=== PATIENT | female | born 1960 | race African-American/Black ===

== ENCOUNTER 2018-06-01 14:54 | Emergency (ER) | payer MEDICAID, OTHER ==
[~2018-06-01] VITALS: Ht 162.6 cm; Wt 100.0 kg
[2018-06-01] MEDS ORDERED: ALBU05 IH (15:03)
[2018-06-01] MEDS ORDERED: HYDR12.529 PO (15:03)
[2018-06-01] MEDS ORDERED: LORA-250 PO (15:03)
[2018-06-01] MEDS ORDERED: LISI-186 PO (15:03)
[2018-06-01] MEDS ORDERED: MORPHINE SULFATE 4 MG/ML CPJ (NOT FOR IM USE) IV ONE (18:15)
[2018-06-01] MEDS ORDERED: ASPIRIN 81MG TABLET PO ONE (18:15)
[2018-06-01] MEDS ORDERED: NITROGLYCERIN OINT 1GM/INCH UDPKT TD ONE (18:15)
[2018-06-01 19:48] LABS: BASOPHILS % 0.6 % (0.0-2.0); EOSINOPHILS % 2.9 % (0.0-5.0); HEMATOCRIT. 41.7 % (36.0-48.0); HEMOGLOBIN. 13.5 g/dL (12.0-16.0); LYMPHOCYTES % 30.5 % (20.0-50.0); MEAN CORPUSCULAR HEMOGLOBIN 26.2 pg (28.0-32.0); MEAN CORPUSCULAR VOLUME 80.8 fL (81.0-99.0); MEAN PLATELET VOLUME 9.9 fl (7.4-10.4); MONOCYTES % 5.7 % (2.0-8.0); NEUTROPHILS % 60.3 % (40.0-76.0); PLATELET 240 x1000/uL (130-400); RED BLOOD CELL COUNT 5.16 mill/uL (4.2-5.4); RED CELL DISTRIBUTION WIDTH 16.1 % (11.6-14.6)
[2018-06-01 19:52] LABS: INR 0.9; PROTHROMBIN TIME 9.5 sec (9.1-11.1)
[2018-06-01 19:54] LABS: CHLORIDE 107 mEq/L (98-107)
[2018-06-01 20:00] VITALS: BP 0/0
== END 2018-06-01 20:00 | disposition left against medical advice (07) ==
LOC: ER 14:54
DX: R07.89 Other chest pain (principal); R06.02 Shortness of breath; I11.0 Hypertensive heart disease with heart failure; I50.9 Heart failure, unspecified; J44.9 Chronic obstructive pulmonary disease, unspecified; E11.9 Type 2 diabetes mellitus without complications; Z79.899 Other long term (current) drug therapy
CPT/HCPCS: 36415; 71045; 80053; 83880; 84484; 85025; 85610; 93005; 96374; 99285; J2270

== ENCOUNTER 2020-01-05 07:48 | Inpatient (IN) | payer MEDICARE, MEDICAID, OTHER ==
[~2020-01-05] VITALS: Ht 160 cm; Wt 112.0 kg
[~2020-01-05 07:48] MED LIST: ALBU05 IH; HYDR12.529 PO; LISI-186 PO; LORA-250 PO
[2020-01-05 08:40] LABS: BASOPHILS % 0.9 % (0.0-2.0); EOSINOPHILS % 1.6 % (0.0-5.0); HEMATOCRIT. 41.6 % (36.0-48.0); HEMOGLOBIN. 13.7 g/dL (12.0-16.0); LYMPHOCYTES % 19.4 % (20.0-50.0); MEAN CORPUSCULAR HEMOGLOBIN 26.2 pg (28.0-32.0); MEAN CORPUSCULAR VOLUME 79.5 fL (81.0-99.0); MEAN PLATELET VOLUME 8.5 fl (7.4-10.4); MONOCYTES % 6.7 % (2.0-8.0); NEUTROPHILS % 71.4 % (40.0-76.0); PLATELET 290 x1000/uL (130-400); RED BLOOD CELL COUNT 5.23 mill/uL (4.2-5.4); RED CELL DISTRIBUTION WIDTH 15.1 % (11.6-14.6)
[2020-01-05 08:46] LABS: CHLORIDE 108 mEq/L (98-107)
[2020-01-05] MEDS ORDERED: IPRATROPIUM BROMIDE (0.02%) 0.5MG/2.5ML NEB HHN STA (10:51)
[2020-01-05] MEDS ORDERED: ALBUTEROL (0.083%) 2.5MG/3ML NEB HHN STA (10:51)
[2020-01-05] MEDS ORDERED: METHYLPREDNISOLONE SOD SUCC 125 MG/2 ML VIAL IV STA (10:51)
[2020-01-05] MEDS ORDERED: FUROSEMIDE 40MG/4ML VIAL IVP ONE (11:45)
[2020-01-05] MEDS ORDERED: ENALAPRIL 2.5MG/2ML VIAL 2ML IV ONE (11:45)
[2020-01-05] MEDS ORDERED: CEFTRIAXONE 1 G PREMIX 50 ML IV SCH (13:00)
[2020-01-05] MEDS ORDERED: ACETAMINOPHEN 325MG TABLET PO PRN (13:00)
[2020-01-05] MEDS ORDERED: ONDANSETRON HCL 4MG/2ML INJ IV PRN (13:00)
[2020-01-05 14:51] VITALS: BP 192/96
[2020-01-05] MEDS: FUROSEMIDE 40MG/4ML VIAL IV SCH (15:28)
[2020-01-05] MEDS: AZITHROMYCIN 500 MG TABLET PO SCH (15:28)
[2020-01-05 15:38] LABS: CLARITY URINE CLEAR (CLEAR); COLOR URINE YELLOW (YELLOW); KETONES URINE NEGATIVE (NEGATIVE); LEUKOCYTE ESTERASE URINE TRACE (NEGATIVE); NITRITE URINE NEGATIVE (NEGATIVE); OCCULT BLOOD URINE NEGATIVE (NEGATIVE); PROTEIN URINE NEGATIVE (NEGATIVE); SPECIFIC GRAVITY URINE 1.008 (1.005-1.030); UROBILINOGEN URINE 0.2 E.U./dL (0.2-1.0)
[2020-01-05 15:46] VITALS: BP 117/91
[2020-01-05 15:59] LABS: *AMPHETAMINES SCREEN URINE NEGATIVE (NEGATIVE); *BARBITURATES SCREEN URINE NEGATIVE (NEGATIVE); *BENZODIAZEPINES SCREEN URINE NEGATIVE (NEGATIVE); *COCAINE SCREEN URINE PRESUMTIVE POSITIVE (NEGATIVE); METHADONE URINE SCREEN NEGATIVE (NEGATIVE); OPIATES URINE SCREEN NEGATIVE (NEGATIVE)
[2020-01-05 16:00] LABS: CANNABINOID URINE SCREEN NEGATIVE (NEGATIVE); PHENCYCLIDINE URINE SCREEN NEGATIVE (NEGATIVE)
[2020-01-05] MEDS: METHYLPREDNISOLONE SOD SUCC 40 MG/ML VIAL IV SCH (16:15)
[2020-01-05] MEDS: CEFTRIAXONE 1 G PREMIX 50 ML IV SCH (16:15)
[2020-01-05] MEDS: IPRATROPIUM/ALBUTEROL 0.5-3(2.5)MG/3ML NEB HHN SCH (17:30)
[2020-01-05 20:00] VITALS: BP 112/83
[2020-01-05] MEDS: ENOXAPARIN 30MG/0.3ML SYR SUBCUT SCH (20:34)
[2020-01-05] MEDS: LORAZEPAM 1MG TABLET PO PRN (20:38)
[2020-01-06] VITALS (7 sets, daily range): BP systolic 128–156; BP diastolic 52–107
[2020-01-06 06:26] LABS: BASOPHILS % 0.1 % (0.0-2.0); HEMATOCRIT. 41.1 % (36.0-48.0); HEMOGLOBIN. 13.4 g/dL (12.0-16.0); LYMPHOCYTES % 13.6 % (20.0-50.0); MEAN CORPUSCULAR HEMOGLOBIN 26.1 pg (28.0-32.0); MEAN CORPUSCULAR VOLUME 80.1 fL (81.0-99.0); MEAN PLATELET VOLUME 8.5 fl (7.4-10.4); MONOCYTES % 2.4 % (2.0-8.0); NEUTROPHILS % 83.9 % (40.0-76.0); PLATELET 293 x1000/uL (130-400); RED BLOOD CELL COUNT 5.13 mill/uL (4.2-5.4); RED CELL DISTRIBUTION WIDTH 15.2 % (11.6-14.6)
[2020-01-06] MEDS: FUROSEMIDE 40MG/4ML VIAL IV SCH (08:19)
[2020-01-06] MEDS: AZITHROMYCIN 500 MG TABLET PO SCH (08:19)
[2020-01-06] MEDS: LORAZEPAM 1MG TABLET PO PRN ×2 (08:19→19:59)
[2020-01-06] MEDS: METHYLPREDNISOLONE SOD SUCC 40 MG/ML VIAL IV SCH ×5 (08:19→23:17)
[2020-01-06] MEDS: ENOXAPARIN 30MG/0.3ML SYR SUBCUT SCH ×3 (08:19→20:02)
[2020-01-06] MEDS: IPRATROPIUM/ALBUTEROL 0.5-3(2.5)MG/3ML NEB HHN SCH ×2 (09:04→16:17)
[2020-01-06] MEDS: CEFTRIAXONE 1 G PREMIX 50 ML IV SCH (15:25)
[2020-01-06] MEDS ORDERED: LORAZEPAM 2MG/ML CPJ IV NR (18:15)
[2020-01-07 05:00] VITALS: BP 170/100
[2020-01-07 06:21] LABS: BASOPHILS % 0.1 % (0.0-2.0); HEMATOCRIT. 42.4 % (36.0-48.0); HEMOGLOBIN. 13.8 g/dL (12.0-16.0); LYMPHOCYTES % 15.5 % (20.0-50.0); MEAN CORPUSCULAR HEMOGLOBIN 26.2 pg (28.0-32.0); MEAN CORPUSCULAR VOLUME 80.6 fL (81.0-99.0); MEAN PLATELET VOLUME 8.8 fl (7.4-10.4); MONOCYTES % 3.8 % (2.0-8.0); NEUTROPHILS % 80.6 % (40.0-76.0); PLATELET 312 x1000/uL (130-400); RED BLOOD CELL COUNT 5.27 mill/uL (4.2-5.4); RED CELL DISTRIBUTION WIDTH 15.1 % (11.6-14.6)
[2020-01-07] MEDS ORDERED: CLONIDINE 0.1MG TABLET PO PRN (06:45)
[2020-01-07 08:39] VITALS: BP 169/76
[2020-01-07] MEDS: ENOXAPARIN 30MG/0.3ML SYR SUBCUT SCH ×2 (09:00→09:06)
[2020-01-07] MEDS ORDERED: AMLODIPINE 10MG TABLET PO SCH (09:00)
[2020-01-07] MEDS: METHYLPREDNISOLONE SOD SUCC 40 MG/ML VIAL IV SCH (09:05)
[2020-01-07] MEDS: AZITHROMYCIN 500 MG TABLET PO SCH (09:05)
[2020-01-07] MEDS: FUROSEMIDE 40MG/4ML VIAL IV SCH (09:05)
[2020-01-07] MEDS ORDERED: LORAZEPAM 2MG/ML CPJ IV NR (10:00)
[2020-01-07 12:17] VITALS: BP 154/82
[2020-01-07 12:21] VITALS: BP 154/85
[2020-01-07] MEDS ORDERED: HYDRALAZINE HCL 50MG TABLET PO SCH (21:00)
== END 2020-01-07 15:30 | disposition home or self-care (01) | DRG 205 ==
LOC: ER 07:48 → 5WST 11:31 → ENRESERV 12:25
PROVIDERS: ADMIT Internal Medicine; ATTEND Internal Medicine
DX: J68.0 Bronchitis and pneumonitis due to chemicals, gases, fumes and vapors (principal); J96.00 Acute respiratory failure, unspecified whether with hypoxia or hypercapnia; I50.43 Acute on chronic combined systolic (congestive) and diastolic (congestive) heart failure; J44.1 Chronic obstructive pulmonary disease with (acute) exacerbation; E44.1 Mild protein-calorie malnutrition; Z68.41 Body mass index [BMI] 40.0-44.9, adult; I11.0 Hypertensive heart disease with heart failure; I50.9 Heart failure, unspecified; E87.5 Hyperkalemia; E66.9 Obesity, unspecified; F14.90 Cocaine use, unspecified, uncomplicated; F17.210 Nicotine dependence, cigarettes, uncomplicated; E11.9 Type 2 diabetes mellitus without complications; Z71.89 Other specified counseling; Z71.6 Tobacco abuse counseling; Z71.51 Drug abuse counseling and surveillance of drug abuser; Z91.14 Patient's other noncompliance with medication regimen
CPT/HCPCS: 36415; 71045; 80048; 80053; 80305; 81003; 82962; 83880; 84484; 85025; 93005; 93306; 94640; 99285; J0696; J1650; J1940; J2060; J2920; J2930; J3490

== ENCOUNTER 2020-07-07 21:37 | Inpatient (IN) | payer MEDICARE, MEDICAID ==
[~2020-07-07] VITALS: Ht 165.1 cm; Wt 99.8 kg
[2020-07-08] MEDS ORDERED: CLONIDINE 0.1MG TABLET PO ONE (02:30)
[2020-07-08 03:21] LABS: BASOPHILS % 0.4 % (0.0-2.0); EOSINOPHILS % 3.2 % (0.0-5.0); HEMATOCRIT. 36.9 % (36.0-48.0); HEMOGLOBIN. 11.8 g/dL (12.0-16.0); LYMPHOCYTES % 35.9 % (20.0-50.0); MEAN CORPUSCULAR HEMOGLOBIN 25.6 pg (28.0-32.0); MEAN PLATELET VOLUME 8.7 fl (7.4-10.4); MONOCYTES % 6.9 % (2.0-8.0); NEUTROPHILS % 53.6 % (40.0-76.0); PLATELET 246 x1000/uL (130-400)
[2020-07-08 03:28] LABS: CHLORIDE 113 mEq/L (98-107)
[2020-07-08] MEDS ORDERED: ACETAMINOPHEN 325MG TABLET PO PRN (07:45)
[2020-07-08] MEDS ORDERED: ONDANSETRON HCL 4MG/2ML INJ IV PRN (07:45)
[2020-07-08] MEDS ORDERED: ENOXAPARIN 40MG/0.4ML SYR SUBCUT SCH (07:45)
[2020-07-08] MEDS ORDERED: KETOROLAC 15MG/ML VIAL IV PRN (07:45)
[2020-07-08] MEDS ORDERED: GUAIFENESIN 200MG/10ML SUGAR FREE UDC PO PRN (07:45)
[2020-07-08] MEDS ORDERED: CLONIDINE 0.1MG TABLET PO PRN (07:45)
[2020-07-08] MEDS ORDERED: AMLODIPINE 10MG TABLET PO SCH (07:45)
[2020-07-08] MEDS ORDERED: IPRATROPIUM/ALBUTEROL 0.5-3(2.5)MG/3ML NEB NEB PRN (07:45)
[2020-07-08] MEDS ORDERED: LISINOPRIL 20MG TABLET PO SCH (07:51)
[2020-07-08 08:25] VITALS: BP 135/58
[2020-07-08] MEDS ORDERED: FUROSEMIDE 40MG/4ML VIAL IV SCH (09:00)
[2020-07-08] MEDS ORDERED: MAGNESIUM/ALUMINUM HYDROXIDE/SIMETHICONE 30ML UDC PO PRN (09:00)
[2020-07-08] MEDS ORDERED: ENOXAPARIN 30MG/0.3ML SYR SUBCUT SCH (09:00)
[2020-07-08] MEDS ORDERED: DOCUSATE SODIUM 100MG CAPSULE PO PRN (09:00)
[2020-07-08] MEDS ORDERED: CLON0.1T MT (11:45)
[2020-07-08 11:48] VITALS: BP 135/58
[2020-07-08 11:56] VITALS: BP 114/84
[2020-07-08 12:00] VITALS: BP 114/84
== END 2020-07-08 12:20 | disposition home or self-care (01) | DRG 682 ==
LOC: ER 21:37 → 5WST 07-08 05:52 → ENRESERV 07-08 07:25
PROVIDERS: ADMIT Hospitalist; ATTEND Hospitalist
DX: N17.9 Acute kidney failure, unspecified (principal); I50.33 Acute on chronic diastolic (congestive) heart failure; I16.0 Hypertensive urgency; I11.0 Hypertensive heart disease with heart failure; J45.909 Unspecified asthma, uncomplicated; J44.9 Chronic obstructive pulmonary disease, unspecified; E11.9 Type 2 diabetes mellitus without complications; H54.8 Legal blindness, as defined in USA; F17.200 Nicotine dependence, unspecified, uncomplicated; F14.11 Cocaine abuse, in remission; Z79.899 Other long term (current) drug therapy
CPT/HCPCS: 36415; 71045; 80053; 83880; 84484; 85025; 93005; 99285

== ENCOUNTER 2020-12-28 15:57 | Emergency (ER) | payer MEDICARE, MEDICAID ==
[~2020-12-28] VITALS: Ht 170.2 cm; Wt 125.0 kg
[~2020-12-28 15:57] MED LIST changes: +CLON0.1T MT
[2020-12-28] MEDS ORDERED: MORPHINE SULFATE 4 MG/ML CPJ (NOT FOR IM USE) IV STA (16:27)
[2020-12-28 17:05] LABS: BASOPHILS % 0.5 % (0.0-2.0); EOSINOPHILS % 2.2 % (0.0-5.0); HEMOGLOBIN. 12.5 g/dL (12.0-16.0); LYMPHOCYTES % 30.5 % (20.0-50.0); MEAN CORPUSCULAR HEMOGLOBIN 25.7 pg (28.0-32.0); MEAN CORPUSCULAR VOLUME 79.9 fL (81.0-99.0); MEAN PLATELET VOLUME 8.9 fl (7.4-10.4); MONOCYTES % 6.9 % (2.0-8.0); NEUTROPHILS % 59.9 % (40.0-76.0); PLATELET 263 x1000/uL (130-400); RED BLOOD CELL COUNT 4.88 mill/uL (4.2-5.4); RED CELL DISTRIBUTION WIDTH 16.1 % (11.6-14.6)
[2020-12-28 17:13] LABS: CHLORIDE 112 mEq/L (98-107)
[2020-12-28 17:14] LABS: PROTHROMBIN TIME 10.3 sec (9.6-11.0)
[2020-12-28] MEDS ORDERED: IOHEXOL-300 100 ML BOTTLE ONE (18:42)
[2020-12-28 19:39] LABS: CLARITY URINE CLEAR (CLEAR); COLOR URINE YELLOW (YELLOW); KETONES URINE NEGATIVE (NEGATIVE); LEUKOCYTE ESTERASE URINE NEGATIVE (NEGATIVE); NITRITE URINE NEGATIVE (NEGATIVE); OCCULT BLOOD URINE NEGATIVE (NEGATIVE); PH URINE 6.5 (4.5-8.0); PROTEIN URINE TRACE (NEGATIVE); SPECIFIC GRAVITY URINE 1.076 (1.005-1.030); UROBILINOGEN URINE 0.2 E.U./dL (0.2-1.0)
[2020-12-28] MEDS ORDERED: LABETALOL 5MG/ML SYR 20 MG/4 ML SYRINGE IV ONE (20:00)
[2020-12-28] MEDS ORDERED: AMOXICILLIN/POTASSIUM CLAVULANATE 875/125MG TAB PO ONE (20:30)
[2020-12-28] MEDS ORDERED: AMOX-424 MT (20:51)
[2020-12-28] MEDS ORDERED: LORAZEPAM 2MG/ML CPJ IV ONE (21:30)
[2020-12-29] MEDS ORDERED: LORAZEPAM 1MG TABLET PO NR (00:45)
[2020-12-29 06:00] VITALS: BP 139/81
== END 2020-12-29 06:18 | disposition home or self-care (01) ==
LOC: ER 15:57
DX: K57.32 Diverticulitis of large intestine without perforation or abscess without bleeding (principal); N85.00 Endometrial hyperplasia, unspecified; I11.0 Hypertensive heart disease with heart failure; I50.9 Heart failure, unspecified; E11.9 Type 2 diabetes mellitus without complications; J44.9 Chronic obstructive pulmonary disease, unspecified; Z90.49 Acquired absence of other specified parts of digestive tract
CPT/HCPCS: 36415; 74177; 76830; 76856; 80053; 81003; 83690; 85025; 85610; 93005; 96374; 96375; 99285; J2060; J2270; J3490; Q9967